=== PATIENT | female | born 1990 | race Caucasian/White ===

== ENCOUNTER 2019-03-14 16:33 | Emergency (ER) | payer MEDICAID, OTHER ==
[2019-03-14 17:09] VITALS: BP 117/65
--- NOTE | 2019-03-14 17:51 | EDM.PDOC ---
ED HPI GENERAL MEDICAL PROBLEM - General Chief Complaint: ENT Problem Stated Complaint: SORE THROAT Time Seen by Provider: 03/14/19 17:05 Source of Information: Reports: Patient History Limitations: Reports: No Limitations - History of Present Illness INITIAL COMMENTS - FREE TEXT/NARRATIVE: This lady comes in with complaint of a sore throat for one day. She denies fever chills or body aches. She's allergic to amoxicillin - Related Data Allergies Allergy/AdvReac Type Severity Reaction Status Date / Time amoxicillin Allergy Cannot Verified 03/14/19 17:04 Remember cefprozil [From Cefzil] Allergy Cannot Verified 03/14/19 17:04 Remember Home Meds: Home Meds NK [No Known Home Meds] 09/16/16 [History] Past Medical History - Past Health History Medical/Surgical History: Denies Medical/Surgical History Social & Family History - Tobacco Use Smoking Status *Q: Never Smoker - Caffeine Use Caffeine Use: Reports: Coffee, Soda ED ROS ENT - Review of Systems Review Of Systems: ROS reveals no pertinent complaints other than HPI. ED EXAM, ENT - Physical Exam Exam: See Below Exam Limited By: No Limitations General Appearance: Alert, WD/WN, No Apparent Distress Eye Exam: Bilateral Eye: Normal Inspection Nose: Normal Inspection Mouth/Throat: Pharyngeal Erythema, Tonsillar Erythema, Tonsillar Exudates Respiratory/Chest: No Respiratory Distress Neurological: Alert, Normal Cognition Skin: Warm, Dry Course - Vital Signs Last Recorded V/S: Last Vital Signs Temp 36.4 C 03/14/19 17:07 Pulse 89 03/14/19 17:07 Resp 14 03/14/19 17:07 BP 117/65 03/14/19 17:07 Pulse Ox 98 03/14/19 17:07 Departure - Departure Time of Disposition: 17:50 Disposition: Home, Self-Care 01 Condition: Fair Clinical Impression: Strep pharyngitis - Discharge Information Referrals: PCP,None [Primary Care Provider] - Additional Instructions: Take a Zithromax as directed for strep throat. That will be 2 tablets today then 1 tablet daily until finished. Use Tylenol or ibuprofen for pain. This is contagious until you have been on the antibiotics for 24 hours
== END 2019-03-14 18:12 | disposition home or self-care (01) ==
LOC: JP.ED 16:33
DX: J02.0 Streptococcal pharyngitis (principal); Z88.1 Allergy status to other antibiotic agents
CPT/HCPCS: 87430; 99283